=== PATIENT | male | born 1960 | race Caucasian/White ===

== ENCOUNTER 2019-08-14 17:26 | Inpatient (IN) | payer OTHER ==
[2019-08-14] MEDS ORDERED: NS 0.9% 1000 ML** 1,000 ML IV ONE ×3 (17:50→21:08)
[2019-08-14 18:32] LABS: Hematocrit 36 % (42-52); Hemoglobin 12.9 g/dL (14.0-18.0); Mean Corpuscular HGB Conc 36 g/dL (31-36); Mean Corpuscular Hemoglobin 29 pg (27-31); Mean Corpuscular Volume 82 fL (80-94); Red Blood Count 4.42 10^6 /uL (4.18-5.48); Red Cell Distribution Width 13 % (10-15); White Blood Count 5.8 10^3/uL (3.5-10.8)
[2019-08-14 18:33] LABS: ABS Lymphocytes 0.6 10^3/ul (1.0-4.8); ABS Monocytes 0.5 10^3/ul (0-0.8); ABS Neutrophils 4.7 10^3/ul (1.5-7.7); Eosinophil % 0.1 %; Lymphocyte % 10.4 %; Nucleated Red Blood Cells % 0.1
[2019-08-14 18:42] LABS: Activated Partial Thrombo Time 30.3 seconds (26.0-38.0); Fibrinogen 313.8 mg/dL (110.8-404.3); INR 1.49 (0.82-1.09)
--- NOTE | 2019-08-14 18:44 | ED ---
Complex/Multi-Sys Presentation - HPI Summary HPI Summary: Patient is a 59 y/o M presenting to [facility] with complaints of fever, chills, fatigue, body aches, and SOB. He states that Sx have been present for around one week. 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 He notes that he was in [facility] between 06/25/19 and 07/22/19 but denies any onset of Sx during this trip or immediately afterwards. He states that he went to [facility] urgent care and had a temperature of 103.7 F. CXR was done and he states that he was told that he had possible PNA and sepsis. Patient was advised to come to [facility] for further workup. He reports Hx of PNA, HLD, and prostate CA. Patient had his prostate removed a year ago. Hx of HTN and diabetes denied. He notes that he is on Viagra. Home medications and allergies are reviewed. - History Of Current Complaint Chief Complaint: EDShortnessOfBreath Time Seen by Provider: 08/14/19 17:40 Hx Obtained From: Patient Onset/Duration: Lasting Weeks, Still Present Timing: Weeks Location: Pain At: - diffue body aches Associated Signs And Symptoms: Positive: SOB, Fever, Other - positive - fatigue , body aches, chills - Allergies/Home Medications Allergies/Adverse Reactions: Allergies Allergy/AdvReac Type Severity Reaction Status Date / Time No Known Allergies Allergy Verified 08/14/19 17:33 Home Medications: Home Medications Sildenafil Citrate [Viagra] 20 mg PO DAILY 08/14/19 [History Confirmed 08/14/19] Simvastatin 40 mg PO BEDTIME 08/14/19 [History Confirmed 08/14/19] PMH/Surg Hx/FS Hx/Imm Hx Endocrine/Hematology History: Denies: Hx Diabetes Cardiovascular History: Denies: Hx Hypertension History: Denies: Hx Renal Disease - Cancer History Cancer Type, Location and Year: PROSTATE (DIAGNOSED 03/30) - Surgical History Surgery Procedure, Year, and Place: APPENDECTOMY, MENISCUS REPAIR, SKIN CA REMOVED FROM LIP Infectious Disease History: Yes Infectious Disease History: Reports: Traveled Outside the [place] in Last 30 Days - Family History Known Family History: Positive: Hypertension, Diabetes - Social History Alcohol Use: Rare Substance Use Type: Reports: None Smoking Status (MU): Never Smoked Tobacco Review of Systems Positive: Fever, Chills, Fatigue Positive: Shortness Of Breath Positive: Myalgia - diffuse body aches All Other Systems Reviewed And Are Negative: Yes Physical Exam - Summary Physical Exam Summary: VITAL SIGNS: Reviewed. GENERAL: Patient is a well-developed and nourished male who is lying comfortable in the stretcher. Patient is not in any acute respiratory distress. HEAD AND FACE: No signs of trauma. No ecchymosis, hematomas or skull depressions. No sinus tenderness. EYES: PERRLA, EOMI x 2, No injected conjunctiva, no nystagmus. EARS: Hearing grossly intact. Ear canals and tympanic membranes are within normal limits. MOUTH: Oropharynx within normal limits. NECK: Supple, trachea is midline, no adenopathy, no JVD, no carotid bruit, no c- spine tenderness, neck with full ROM. CHEST: Symmetric, no tenderness at palpation. LUNGS: Crackles bilaterally, no wheezing. CVS: Regular rate and rhythm, S1 and S2 present, no murmurs or gallops appreciated. ABDOMEN: Soft, non-tender. No signs of distention. No rebound, no guarding, and no masses palpated. Bowel sounds are normal. EXTREMITIES: FROM in all major joints, no edema, no cyanosis or clubbing. NEURO: Alert and oriented x 3. No acute neurological deficits. Speech is normal and follows commands. SKIN: Dry and warm. Triage Information Reviewed: Yes Vital Signs On Initial Exam: Initial Vitals Temp Pulse Resp BP Pulse Ox 97.0 F 110 18 103/87 94 08/14/19 17:26 08/14/19 17:26 08/14/19 17:26 08/14/19 17:26 08/14/19 17:26 Vital Signs Reviewed: Yes Procedures - Sedation Patient Received Moderate/Deep Sedation with Procedure: No Diagnostics - Vital Signs Vital Signs Temp Pulse Resp BP Pulse Ox 08/14/19 18:20 89 103/62 94 08/14/19 18:00 82 95 08/14/19 17:51 84 94 08/14/19 17:50 79 113/66 93 08/14/19 17:26 97.0 F 110 18 103/87 94 - Laboratory Lab Results: Lab Results 08/14/19 Range/Units 17:54 WBC 5.8 (3.5-10.8) 10^3/uL RBC 4.42 (4.18-5.48) 10^6 /uL Hgb 12.9 L (14.0-18.0) g/dL Hct 36 L (42-52) % MCV 82 (80-94) fL MCH 29 (27-31) pg MCHC 36 (31-36) g/dL RDW 13 (10-15) % Plt Count Pending MPV Pending Neut % (Auto) 79.8 % Lymph % (Auto) 10.4 % [place] % (Auto) 9.0 % Eos % (Auto) 0.1 % Baso % (Auto) 0.7 % Absolute Neuts (auto) 4.7 (1.5-7.7) 10^3/ul Absolute Lymphs (auto) 0.6 L (1.0-4.8) 10^3/ul Absolute Monos (auto) 0.5 (0-0.8) 10^3/ul Absolute Eos (auto) 0.0 (0-0.6) 10^3/ul Absolute Basos (auto) 0.0 (0-0.2) 10^3/ul Absolute Nucleated RBC 0.0 10^3/ul Nucleated RBC % 0.1 Smear Path Review Pending Blood Parasite Screen Pending Result Diagrams: 08/15/19 03:27 08/15/19 03:27 Lab Statement: Any lab studies that have been ordered have been reviewed, and results considered in the medical decision making process. - Radiology CXR Radiology Interpretation Completed By: ED Physician Summary of Radiographic Findings: No acute process, pending official report. - EKG 1822 Cardiac Rate: NL - rate of 87 BPM EKG Rhythm: Sinus Rhythm Summary of EKG Findings: EKG showed NSR with rate of 87 BPM, some ST depression in leads V4, V5, V6. No STEMI. ED physician has reviewed and interpreted this EKG. Complex Multi-Symp Course/Dx Assessment/Plan: Patient is an 82 y/o M presenting to [facility] with complaints of back pain and BLE weakness. Patient had an appointment with his PCP today for his back pain, X-ray was done. Patient claims that he developed BLE weakness earlier today and had difficulty ambulating. However, he notes that he is capable of ambulation overall. Patient was sent to ED for further workup. He reports Hx of arthritis, HTN, CAD, and PNA. Home medications and allergies are reviewed. In the ED course the patient was placed in a monitor car operator, IV access was obtained, IV fluids started. Past medical records reviewed. Blood test w/o a significant abnormality except for hemoglobin 12.9, hematocrit 36, lymphocytes 0.6, sodium 128, potassium 2.9, chloride 96, glucose 150, calcium 8.1, total bili is 1.3, CRP is 108 and total protein is 6. Influenza A and B negative. Blood parasite screen is positive. Since the patient is coming from [facility] likely the patient has contracted malaria. Chest x-ray shows no acute pathology. Patient was given additional liter of normal saline, potassium chlorate, and he was started on Atovaquone. I discuss my physical exam and test results with Dr. Patricia from the hospitalist services and he agrees to admit the patient to his services. The patient is hemodynamically stable alert and oriented x 3. - Diagnoses Provider Diagnoses: Malaria, Hypokalemia, Hyponatremia - Physician Notifications Discussed Care Of Patient With: Bob Patricia Time Discussed With Above Provider: 19:13 Instructed by Provider To: Other - Patient's case was discussed with Dr. Patricia , Dr. Patricia accepts for admission Discharge ED - Sign-Out/Discharge Documenting (check all that apply): Patient Departure - admit - Discharge Plan Condition: Stable Disposition: ADMITTED TO [facility] - Billing Disposition and Condition Condition: STABLE Disposition: Admitted to [facility] - Attestation Statements Document Initiated by Atul: Yes Documenting Scribe: MARGARET NIXON Provider For Whom Atul is Documenting (Include Credential): ALEX ADORNO MD Scribe Attestation: IMARGARET, scribed for ALEX ADORNO MD on 08/15/19 at 0932. Scribe Documentation Reviewed: Yes Provider Attestation: The documentation as recorded by the MARGARET freeman accurately reflects the service I personally performed and the decisions made by me, ALEX ADORNO MD Status of Scribe Document: Viewed
[2019-08-14 18:45] LABS: Albumin 3.3 g/dL (3.2-5.2); Albumin/Globulin Ratio 1.2 (1-3); BUN/Creatinine Ratio 18.7 (8-20); C Reactive Protein 108.38 mg/L (<8.01); Calcium 8.1 mg/dL (8.6-10.3); EGFR Non-African American 106.6 (>60); Globulin 2.7 g/dL (2-4); Potassium 2.9 mmol/L (3.5-5.0); Total Bilirubin 1.3 mg/dL (0.2-1.0)
[2019-08-14] MEDS ORDERED: Potassium Chlor TAB* 20 MEQ TAB.ER PO ONE (18:46)
[2019-08-14 18:48] LABS: Troponin I 0.01 ng/mL (<0.03)
[2019-08-14 18:58] LABS: Mean Platelet Volume 8.8 fL (7.4-10.4); Platelet Count 61 10^3/uL (150-450)
[2019-08-14 19:04] LABS: RBC Parasite Smear Parasites Seen (No Parasite)
[2019-08-14 19:12] LABS: Influenza A Molecular Negative (Negative); Influenza B Molecular Negative (Negative)
[2019-08-14] MEDS ORDERED: Atovaquone* 750 MG/5 ML UDC PO ONE (19:14)
[2019-08-14 19:27] LABS: Urine Appearance Clear; Urine Bilirubin Negative (Negative); Urine Blood Negative (Negative); Urine Color Yellow; Urine Glucose Negative (Negative); Urine Ketones 1+ (Negative); Urine Nitrite Negative (Negative); Urine Protein Negative (Negative); Urine Specific Gravity 1.016 (1.010-1.030); Urine Urobilinogen Negative (Negative)
[2019-08-14 19:34] LABS: Magnesium 1.4 mg/dL (1.9-2.7)
[2019-08-14] MEDS ORDERED: ATOVAQUONE PO ONE (20:00)
[2019-08-14] MEDS ORDERED: PROGUANIL PO ONE (20:00)
[2019-08-14] MEDS ORDERED: Magnesium Sulfate 2 GM IV* 2 GM/50 ML BAG IVPB ONE (21:08)
[2019-08-14] MEDS ORDERED: Ondansetron INJ* 2 MG/ML VIAL IV PRN (21:08)
[2019-08-14] MEDS ORDERED: NS 0.9% 1000 ML** 1,000 ML IV SCH (21:15)
[2019-08-14] MEDS ORDERED: cefTRIAXone(*) 1 GM in NS 0.9% 50 ML* 50 ML IVPB ONE (21:30)
[2019-08-14] MEDS: Acetaminophen TAB* 325 MG PO PRN (21:49)
[2019-08-14] MEDS ORDERED: Azithromycin 500 mg/250 mL NS IVPB ONE (22:00)
[2019-08-14] MEDS: Azithromycin 500 mg/250 ml NS 500 MG/250 ML BAG IVPB SCH (22:03)
[2019-08-14 22:53] LABS: BUN/Creatinine Ratio 23.2 (8-20); Calcium 7.3 mg/dL (8.6-10.3); EGFR Non-African American 117.4 (>60); Magnesium 1.1 mg/dL (1.9-2.7); Potassium 2.9 mmol/L (3.5-5.0)
[2019-08-14 22:55] LABS: Troponin I 0.01 ng/mL (<0.03)
--- NOTE | 2019-08-14 23:10 | HP ---
CC: Dr. Morales; Dr. Silva * HISTORY AND PHYSICAL: DATE OF ADMISSION: 08/14/19 PRIMARY CARE PROVIDER: Dr. Silva. ATTENDING PHYSICIAN WHILE IN THE HOSPITAL: Dr. Patricia * (report dictated by Joe Parks NP). CHIEF COMPLAINT: 1. Rigors. 2. Not feeling well. 3. Myalgias. 4. Fevers. HISTORY OF PRESENT ILLNESS: Mr. 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 He had been taking malaria prophylaxis 2 weeks after returning. He says he was on doxycycline, he finished that, initially was feeling okay; however, last Tuesday, he started feeling lightheaded, dizzy, feeling tired, feeling malaise. He was concerned because he has been working near welding fumes and he thought that perhaps that had made him feel dizzy, lightheaded. He went home, initially felt a little bit better, did okay on , had a decreased appetite, did have some chills, felt okay on Tuesday, was able to go to a farm show with a friend but still feeling a little tired, fatigued, thought maybe was related to the fumes; however, over the weekend, he developed chills, rigors, not able to get warm, having hot and cold, aching all over, feeling nauseated, feeling very tired and fatigued. He actually went to [facility], was found to have an ear infection external, was started on presumably Cipro drops, although he is going to bring in the drops so we can continue. He states that he despite just was not feeling well continued to have decreased appetite and chills. He went to urgent care again today. They were concerned that he may have pneumonia based on chest x-ray and was sent to the hospital. He had a temperature there, which according to them was 103.7. He came to the ER here today, was evaluated. The chest x-ray was concerning for possible pneumonia but it was noted that he had a thrombocytopenia. With the recent travel, a parasite screen was obtained and he does appear to have malaria. Because of these findings and the fact that he was tachycardic, febrile, aching all over, had a low-grade temperature here, we were asked to evaluate for admission. PAST MEDICAL HISTORY: Significant for: 1. Hyperlipidemia. 2. Prostate cancer. 3. Anxiety. PAST SURGICAL HISTORY: 1. He has had an appendectomy. 2. Prostate surgery. HOME MEDICATIONS: Include: 1. Ear drops, he is unsure of the name. His states that she will bring that in so that we can continue. 2. Simvastatin 40 mg daily. 3. Viagra 20 mg p.o. daily. ALLERGIES TO MEDICATIONS: Include no known drug allergies. FAMILY HISTORY: Both his parents had high blood pressure. SOCIAL HISTORY: He does not smoke, does not drink. Surrogate decision maker is his . REVIEW OF SYSTEMS: There is a documented fever. He denied any significant weight change. No double vision, no ear discharge. No rhinorrhea, no sore throat. No thyroid enlargement. Denied any chest pain. There is no orthopnea , no nocturnal dyspnea. He does admit to having some abdominal pain, but no nausea, no vomiting. No dysuria, no frequency. There was no seizure, no loss of consciousness. No pruritus and no skin ulcerations. Review of 14 systems completed, all others were negative. PHYSICAL EXAMINATION GENERAL: At this time, Mr. Dao is a 59-year-old male patient, he is sitting in the ED stretcher. He does not appear to be in any acute distress. He is well nourished, well developed. VITAL SIGNS: Blood pressure 123/69, pulse 102, respirations 18, O2 sat 93%, temperature 100.3. HEENT: Head is atraumatic and normocephalic. Eyes: EOMs are intact. Sclerae are anicteric and not pale. Throat: Oral mucosa appears to be dry. No oropharyngeal erythema. NECK: Supple. LUNGS: He did have some crackles in the right base. He had equal diaphragmatic expansion. HEART: Sounds S1, S2. He is tachycardic. No murmurs, rubs, or gallops. ABDOMEN: Soft, flat, nontender. Bowel sounds were present. EXTREMITIES: Pulses were 2+ throughout. He is moving all 4 extremities with 5/ 5 strength. NEUROLOGICAL: He is awake, he is alert, he is oriented x3. His speech is clear. Tongue midline. No facial drooping was noted. SKIN: Grossly intact. LABORATORY DATA/DIAGNOSTIC STUDIES: Labs today are revealing WBC of 5.8, RBC of 4.42, hemoglobin 12.9, hematocrit of 36, his baseline hemoglobin is 15, platelet count is 61,000, baseline platelets are about 250,000. INR 1.49, PTT of 30.3. Fibrinogen 313. Sodium 128, potassium 2.9, chloride 96, bicarb 25, BUN 14, creatinine 0.75, glucose 150, lactic 1, calcium 8.1, mag 1.4. Total bili 1.3. AST 17, ALT 32, alk phos 46. Troponin 0.01. CRP of 108. Albumin 3.3. Urine showed 1+ ketones. Serology was negative for flu but positive for blood parasites. The patient did have a chest x-ray obtained today as well, which does appear that he has a slight infiltrate in the right base possibly, perhaps in the left upper lobe as well, no pulmonary edema was noted, he had a normal cardiac silhouette. He had an EKG obtained today as well, which shows normal sinus rhythm with a rate of 87. He does have some subtle depression in V4 and V5. No ST elevation was noted. PVCs were noted. Old medical records were reviewed. ASSESSMENT AND PLAN: Mr. Dao is a 59-year-old male patient coming into the emergency department today with complaints of myalgias, fever, chills, not feeling well, on evaluation found to have malaria. He will be admitted under inpatient status for: 1. Sepsis secondary to malaria. Again, he does have sepsis, but I do not see evidence of severe sepsis. I do not see any end-organ dysfunction. I do note that the platelets have fallen but I think that is secondary to the malaria. My plan at this point is he will be getting the 30 cc/kg bolus. His lactic was stable. Fortunately, blood pressure is holding. I am going to put him on Malarone. I have consulted Dr. Morales, he will be evaluating the patient. I do note that he does have some questionable infiltrates in the lungs. I will start him on azithromycin and Rocephin. We will get a legionella antigen and Strep pneumo antigen, blood cultures were sent and we will continue to give him medications for fevers and continue to monitor him. 2. Subtle EKG changes. He is not having any chest pain at this point. He did have some subtle depression in V5 and V4. I am going to go ahead and cycle his troponins and repeat an EKG in the morning. 3. DVT prophylaxis: I am putting him on SCDs. Because of the thrombocytopenia , I am hesitant to use heparin. 4. Hyperlipidemia. I will continue statin therapy. 5. History of prostate cancer. I am holding his Viagra in the setting of acute illness, but he can restart this when able. 6. External otitis media. He does have some redness on exam to his left canal. I will continue his drops. His states that she will be bringing those in and we will restart those appropriately. 7. Fluid, electrolytes, and nutrition: He can have a regular diet. I note his sodium is low, it is probably secondary to dehydration. I am going to repeat his BMP. If it is falling down, I certainly will get a urine osmolality , serum osmolality, TSH, and cortisol level. We will replace the magnesium. I am going to give him 2 g of magnesium, placing him on telemetry because of the electrolyte abnormalities and I am also going to repeat his magnesium and potassium. Potassium was replaced in the emergency room. 8. Code status: Full code. TIME SPENT: Time spent on the admission was 60 minutes, greater than half the time was spent [id number] with the patient obtaining my history of physical; the other half time was spent going over the plan of care with the patient and implementing plan of care. I did discuss the plan of care with my attending, Dr. Patricia; he is in agreement. JOE PARKS NP [id number]/[facility] #: [id number] MONY
[2019-08-15] MEDS ORDERED: Potassium Chlor TAB* 20 MEQ TAB.ER PO ONE ×2 (00:15→07:43)
[2019-08-15] MEDS ORDERED: Ibuprofen TAB* 600 MG PO ONE (00:15)
[2019-08-15] MEDS ORDERED: Magnesium Sulfate 2 GM IV* 2 GM/50 ML BAG IVPB ONE (00:30)
[2019-08-15 03:39] LABS: ABS Lymphocytes 0.2 10^3/ul (1.0-4.8); ABS Monocytes 0.4 10^3/ul (0-0.8); ABS Neutrophils 6.7 10^3/ul (1.5-7.7); Eosinophil % 0.1 %; Hematocrit 34 % (42-52); Hemoglobin 11.8 g/dL (14.0-18.0); Mean Corpuscular HGB Conc 35 g/dL (31-36); Mean Corpuscular Hemoglobin 29 pg (27-31); Mean Corpuscular Volume 84 fL (80-94); Mean Platelet Volume 8.8 fL (7.4-10.4); Platelet Count 46 10^3/uL (150-450); Red Blood Count 4.06 10^6 /uL (4.18-5.48); Red Cell Distribution Width 13 % (10-15); White Blood Count 7.4 10^3/uL (3.5-10.8)
[2019-08-15 03:41] LABS: INR 1.5 (0.82-1.09)
[2019-08-15 03:53] LABS: BUN/Creatinine Ratio 21.1 (8-20); Calcium 7.2 mg/dL (8.6-10.3)
[2019-08-15 03:55] LABS: Troponin I 0.01 ng/mL (<0.03)
[2019-08-15 03:58] LABS: Potassium 2.7 mmol/L (3.5-5.0)
[2019-08-15] MEDS: KCL 10 MEQ/50 ML IVPREMIX* 10 MEQ/50 ML BAG IV SCH ×3 (04:14→14:20)
[2019-08-15] MEDS: NS 0.9% w/ 40 Meq KCL 1000 ML* 1,000 ML IV SCH ×2 (04:14→17:10)
--- NOTE | 2019-08-15 10:10 | PN ---
Subjective Date of Service: 08/15/19 Interval History: Patient was feeling better today, but started to feel fatigue again. Patient complained of mild diarrhea this morning. Objective Active Medications: Acetaminophen (Tylenol Tab*) 650 mg PO Q4H PRN PRN Reason: PAIN - MILD Last Admin: 08/14/19 21:49 Dose: 650 mg Atorvastatin Calcium (Lipitor*) 20 mg PO BEDTIME [facility] Atovaquone/Proguanil (Malarone (Nf)) 4 tab PO BEDTIME [facility]; Protocol Stop: 08/16/19 21:01 Azithromycin (Zithromax 500 Mg/250 Ml) 500 mg in 250 mls @ 250 mls/hr IVPB Q24H [facility] Last Admin: 08/14/19 22:03 Dose: 250 mls/hr Ceftriaxone Sodium 1 gm/ (Sodium Chloride) 50 mls @ 200 mls/hr IVPB Q24H [facility] Potassium Chloride/Sodium Chloride (Ns 0.9% W/ 40 Meq Kcl 1000 Ml*) 1,000 mls @ 125 mls/hr IV PER RATE [facility] Last Admin: 08/15/19 04:14 Dose: 125 mls/hr Magnesium Oxide (Magox 400 Tab*) 400 mg PO DAILY [facility] Stop: 08/18/19 09:59 Ondansetron HCl (Zofran Inj*) 4 mg IV Q6H PRN PRN Reason: NAUSEA Vital Signs - 8 hr 08/15/19 08/15/19 03:33 07:15 Temperature 97.7 F 99.2 F Pulse Rate 101 97 Respiratory 18 18 Rate Blood Pressure 100/51 90/60 (mmHg) O2 Sat by Pulse 97 95 Oximetry Oxygen Devices in Use Now: None Exam: Appearance: sitting up comfortably. Eyes: No Scleral Icterus, PERRLA Ears/Nose/Mouth/Throat: Mucous Membranes Moist Neck: NL Appearance and Movements; NL JVP, Trachea Midline Respiratory: Symmetrical Chest Expansion and Respiratory Effort, mild bibasal creps. Cardiovascular: NL Sounds; No Murmurs; No JVD, no peripheral edema Abdominal: NL Sounds; No Tenderness; No Distention Extremities: no cyanosis, no edema Neurological: Alert and Oriented x 3 Result Diagrams: 08/15/19 03:27 08/15/19 14:45 Additional Lab and Data: Lab Results 08/14/19 Range/Units 17:54 WBC 5.8 (3.5-10.8) 10^3/uL RBC 4.42 (4.18-5.48) 10^6 /uL Hgb 12.9 L (14.0-18.0) g/dL Hct 36 L (42-52) % MCV 82 (80-94) fL MCH 29 (27-31) pg MCHC 36 (31-36) g/dL RDW 13 (10-15) % Plt Count Pending MPV Pending Neut % (Auto) 79.8 % Lymph % (Auto) 10.4 % [place] % (Auto) 9.0 % Eos % (Auto) 0.1 % Baso % (Auto) 0.7 % Absolute Neuts (auto) 4.7 (1.5-7.7) 10^3/ul Absolute Lymphs (auto) 0.6 L (1.0-4.8) 10^3/ul Absolute Monos (auto) 0.5 (0-0.8) 10^3/ul Absolute Eos (auto) 0.0 (0-0.6) 10^3/ul Absolute Basos (auto) 0.0 (0-0.2) 10^3/ul Absolute Nucleated RBC 0.0 10^3/ul Nucleated RBC % 0.1 Smear Path Review Pending Blood Parasite Screen Pending Assess/Plan/Problems-Billing Assessment: Mario Dao is a 59 y/o male with history of hyperlipidemia, presented with fever , chills , fatigue after recent return from [facility] 3 weeks earlier. He was found to have parasite screen positive, which suspicious for malaria. - Patient Problems (1) Malaria Current Visit: Yes Status: Acute Code(s): B54 - UNSPECIFIED MALARIA SNOMED Code(s): 96960667 Comment: - start on Malarone, will monitor liver function - ID consult appreciated - will monitor response to treatment while inpatient. - patient can be followed outpt for malaria (2) Sepsis Current Visit: Yes Status: Acute Comment: - came in with fever, tachycardia , meets SIRS criteria - possible left lung infiltrate - will cover with ceftriaxone and azithromycin (3) Hypokalemia Current Visit: Yes Status: Acute Code(s): E87.6 - HYPOKALEMIA SNOMED Code( s): 01091664 Comment: - will replace with iv and oral tablet (4) Hyperlipidemia Current Visit: Yes Status: Acute Code(s): E78.5 - HYPERLIPIDEMIA, UNSPECIFIED SNOMED Code(s): 11945827 Comment: - continue statin (5) Full code status Current Visit: Yes Status: Acute Code(s): Z78.9 - OTHER SPECIFIED HEALTH STATUS SNOMED Code(s): 585293063 (6) DVT prophylaxis Current Visit: Yes Status: Acute Code(s): Z29.9 - ENCOUNTER FOR PROPHYLACTIC MEASURES, UNSPECIFIED SNOMED Code(s): 056487158 Comment: ambulatory Status and Disposition: Inpatient Medicine. Attestation Documenting Resident: Leyla Rodríguez Supervising Physician: Amrik Chavez Attending/Supervising Physician Comment: Patient admitted w/ malaria, no SEWER REPAIRER involvement, may have infiltrates. Also has hypokalemia, ?due to diarrhea. Repleting Mg and KCl. Attestation: This service has been performed in part by a resident under the direction of a teaching physician.I, Amrik Chavez, performed the service, or was physically present during the critical, or loving portions of the service, furnished by the resident. I participated in the management of the patient.
[2019-08-15] MEDS: Magnesium Oxide TAB* 400 MG PO SCH (11:14)
[2019-08-15] MEDS: KCL premix 10MEQ/50 ML x 2 BAGS IV SCH ×2 (14:08→14:20)
[2019-08-15] MEDS: Acetaminophen TAB* 325 MG PO PRN ×2 (14:24→23:32)
--- NOTE | 2019-08-15 14:27 | CONS ---
CONSULTATION REPORT: DATE OF CONSULT: 08/15/19 REQUESTING PROVIDER: Riccardo Parks NP CONSULTING SERVICE: Infectious Disease. REASON FOR CONSULT: Malaria. IMPRESSION: 1. 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 He is stable. His tachycardia is improving and his oral intake is increasing. His rigors and sweats are a little better. We discussed that he can expect those sy mptoms to persist for a few days. The percent parasitemia is pending. 2. Hypokalemia. 3. Thrombocytopenia and anemia due to malaria. RECOMMENDATIONS: Continue potassium replacement, fluids as needed, Malarone day 2 of 4. We will rep eat a smear eventually. He did have a tiny infiltrate on his x- ray, which I think is related to sys temic infection and does not represent pneumonia. We will stop his ceftriaxone and azithromycin. HISTORY OF PRESENT ILLNESS: This is a 59-year-old man with travel to [facility]. He took doxycycline wh ile there. He was in the country [place] 6 [place] 8 weeks. He took it for 2 weeks after he returned. Ten d ays after finishing doxycycline, he developed fevers, chills, and sweats with malaise, decreased ener gy. Symptoms persisted. Seen in the urgent care, diagnosed with otitis externa. He was still feelin g worse, so he came to the hospital yesterday. Influenza PCR was negative. His blood parasite scree n was positive. His hemoglobin was 12.9, platelets 61, bilirubin 1.3, CRP 108. No bilirubin in the urine. Today, his hemoglobin is 11.8, platelets 46. He was febrile off and on overnight. No fevers this morning. He has been normotensive. He had some tachycardia yesterday, which is starting to im prove. PAST MEDICAL HISTORY: 1. Hyperlipidemia. 2. Prostate cancer, status post prostatectomy. 3. Anxiety. PAST SURGICAL HISTORY: Status post appendectomy. ALLERGIES: No known drug allergies. MEDICATIONS: 1. Tylenol. 2. Lipitor. 3. Malarone. 4. Ceftriaxone 1 g a day. 5. Azithromycin 500 mg daily. 6. Potassium. SOCIAL HISTORY: He lives in [place]. He works on a farm. Had been in [facility] for a few weeks do [employer] work. Lives with his . FAMILY HISTORY: Parents with hypertension. REVIEW OF SYSTEMS: All negative except as noted above to a 12-point review of systems. PHYSICAL EXAM: Vital Signs: Temperature 37.3, heart rate 90, respiratory rate 18, blood pressure 90 /60 at 7:15, oxygen saturation 95% on room air. In general, he is awake, not in distress, conversant . HEENT: There is no conjunctival hemorrhage. There is slight scleral icterus . Oropharynx w ithout lesions. Neck is supple without mass. Lymph Nodes: There is no cervical, supraclavicular, i nguinal, axillary, or epitrochlear lymphadenopathy. Heart is regular rate and rhythm without murmurs , rubs, or gallops. Lungs are clear to auscultation bilaterally. Abdomen: Soft, nontender, nondist ended. There are bowel sounds present. Skin: There is no rash or splinter hemorrhage. Musculoskel etal: There is no spine tenderness to palpation or joint synovitis. LABORATORY DATA: Potassium 2.7, creatinine 0.7. White blood cell count 7, hemoglobin 11.8, platelet s 46. Please see impression and recommendations outlined above. Thanks for asking me to see Mr. Dao in consultation. [id number]/[facility] #: [id number]
[2019-08-15 15:12] LABS: BUN/Creatinine Ratio 20.3 (8-20); Calcium 7.6 mg/dL (8.6-10.3); EGFR African American 170.1 (>60); EGFR Non-African American 140.6 (>60); Potassium 3.9 mmol/L (3.5-5.0)
[2019-08-15] MEDS: Azithromycin 500 mg/250 ml NS 500 MG/250 ML BAG IVPB SCH (20:42)
[2019-08-15] MEDS ORDERED: ATOVAQUONE PO SCH (21:00)
[2019-08-15] MEDS ORDERED: PROGUANIL PO SCH (21:00)
[2019-08-15] MEDS ORDERED: Atorvastatin* 20 MG TAB PO SCH (21:00)
[2019-08-15] MEDS ORDERED: cefTRIAXone(*) 1 GM in NS 0.9% 50 ML* 50 ML IVPB SCH (21:30)
[2019-08-16] MEDS: NS 0.9% w/ 40 Meq KCL 1000 ML* 1,000 ML IV SCH ×2 (01:15→11:06)
[2019-08-16 06:31] LABS: Albumin 2.3 g/dL (3.2-5.2); CO2 Carbon Dioxide 15 mmol/L (22-32); Calcium 7.1 mg/dL (8.6-10.3); Chloride 109 mmol/L (101-111); Sodium 132 mmol/L (135-145)
[2019-08-16 06:37] LABS: ALT 21 U/L (7-52); Albumin/Globulin Ratio 0.8 (1-3); Alkaline Phosphatase 41 U/L (34-104); BUN/Creatinine Ratio 16.1 (8-20); Blood Urea Nitrogen 9 mg/dL (6-24); EGFR African American 180.7 (>60); EGFR Non-African American 149.3 (>60); Glucose 99 mg/dL (70-100); Total Protein 5.3 g/dL (6.4-8.9)
[2019-08-16 06:49] LABS: ABS Eosinophils 0.1 10^3/ul (0-0.6); ABS Lymphocytes 1.1 10^3/ul (1.0-4.8); ABS Monocytes 0.5 10^3/ul (0-0.8); ABS Neutrophils 4.1 10^3/ul (1.5-7.7); Eosinophil % 1.7 %; Hematocrit 35 % (42-52); Lymphocyte % 17.9 %; Mean Corpuscular HGB Conc 35 g/dL (31-36); Mean Corpuscular Hemoglobin 29 pg (27-31); Mean Corpuscular Volume 84 fL (80-94); Mean Platelet Volume 8.9 fL (7.4-10.4); Nucleated Red Blood Cells % 0.1; Platelet Count 88 10^3/uL (150-450); Red Blood Count 4.11 10^6 /uL (4.18-5.48); Red Cell Distribution Width 14 % (10-15); White Blood Count 5.9 10^3/uL (3.5-10.8)
[2019-08-16 07:04] LABS: Anion Gap 8 mmol/L (2-11)
[2019-08-16] MEDS: Magnesium Oxide TAB* 400 MG PO SCH (07:40)
[2019-08-16] MEDS ORDERED: Polyethylene Glycol 3350* 17 GM PACKET PO PRN (09:15)
--- NOTE | 2019-08-16 09:33 | PN ---
Progress Note - Progress Note Date of Service: 08/16/19 SOAP: Subjective: CC: malaria HPI: 59 [facility] travel [facility], took doxy 2 weeks after trip. Later developed fever and rigors. No rigors last night, had a low grade fever. Appetite improved. No cough or shortness of breath. Objective: Vital Signs Temp 37.4 C 08/16/19 03:36 Pulse 102 08/16/19 03:36 Resp 17 08/16/19 03:36 BP 101/49 08/16/19 03:36 Pulse Ox 96 08/16/19 03:36 Intake & Output 08/15/19 08/16/19 08/16/19 18:59 06:59 18:59 Intake Total 5697 2531 Output Total 1100 1260 Balance 4597 1271 Intake: IV Fluids 1601 NS with 40K 1601 IVPB 1200 NS with 40K 1000 Potassium 200 Oral 4497 930 Output: Urine 1100 1260 Other: # Bowel Movements 0 # Voids 0 PE: appears comfortable, no scleral icterus Lungs:CTA Laboratory Results - last 24 hr 08/14/19 08/15/19 08/16/19 17:54 14:45 05:41 WBC RBC Hgb Hct MCV MCH MCHC RDW Plt Count MPV Neut % (Auto) Lymph % (Auto) Will % (Auto) Eos % (Auto) Baso % (Auto) Absolute Neuts (auto) Absolute Lymphs (auto) Absolute Monos (auto) Absolute Eos (auto) Absolute Basos (auto) Absolute Nucleated RBC Nucleated RBC % Smear Path Review Hem Pathologist Commnt Sodium 135 132 L Potassium 3.9 TNP Chloride 107 109 Carbon Dioxide 22 15 L Anion Gap 6 8 BUN 12 9 Creatinine 0.59 L 0.56 L Est GFR ( Amer) 170.1 180.7 Est GFR (Non-Af Amer) 140.6 149.3 BUN/Creatinine Ratio 20.3 H 16.1 Glucose 154 H 99 Calcium 7.6 L 7.1 L Total Bilirubin 0.70 AST TNP ALT 21 Alkaline Phosphatase 41 Total Protein 5.3 L Albumin 2.3 L Globulin 3.0 Albumin/Globulin Ratio 0.8 L 08/16/19 08/16/19 06:34 06:37 WBC 5.9 RBC 4.11 L Hgb 12.0 L Hct 35 L MCV 84 MCH 29 MCHC 35 RDW 14 Plt Count 88 L D MPV 8.9 Neut % (Auto) 70.3 Lymph % (Auto) 17.9 Will % (Auto) 9.3 Eos % (Auto) 1.7 Baso % (Auto) 0.8 Absolute Neuts (auto) 4.1 Absolute Lymphs (auto) 1.1 Absolute Monos (auto) 0.5 Absolute Eos (auto) 0.1 Absolute Basos (auto) 0.0 Absolute Nucleated RBC 0.0 Nucleated RBC % 0.1 Smear Path Review Hem Pathologist Commnt Sodium Potassium 4.0 Chloride Carbon Dioxide Anion Gap BUN Creatinine Est GFR ( Amer) Est GFR (Non-Af Amer) BUN/Creatinine Ratio Glucose Calcium Total Bilirubin AST 17 ALT Alkaline Phosphatase Total Protein Albumin Globulin Albumin/Globulin Ratio Assessment: 1. malaria, P. falciparum 2. pulmonary infiltrate, slight and without respiratory symptoms, I don't think he has pneumonia. Plan: 1. recheck cxr 1 month 2. add % parasitemia and pcr, continue malarone day 3 of 4
[2019-08-16] MEDS: Acetaminophen TAB* 325 MG PO PRN (11:07)
[2019-08-16 11:48] VITALS: BP 113/63
--- NOTE | 2019-08-16 17:08 | DS ---
Resident Discharge Summary Discharge Summary: Date of Admission: 08/14/19 Date of Discharge: 08/16/19 Admitting MD: Bob Patricia DO Attending MD: Amrik Chavez MD Primary Care Physician: Nikita Silva MD Home Medications Medication Instructions Recorded Confirmed Type Sildenafil Citrate [Viagra] 20 mg PO DAILY 08/14/19 08/14/19 History Simvastatin 40 mg PO BEDTIME 08/14/19 08/14/19 History Acetaminophen TAB* [Tylenol TAB*] 650 mg PO Q4H PRN tab 08/16/19 Rx Atovaquone/Proguanil (NF) 4 tab PO BEDTIME #8 tab 08/16/19 Rx [Malarone (NF)] Disposition: Home Condition: Improved Primary Diagnosis: 1. Malaria 2. Pulmonary infiltrate likely due to malaria Secondary Diagnosis: 1. Hyperlipidemia Diagnostic Imaging: CXR 08/13: left basilar infiltrate, faint Pertinent Laboratory Results: CBC 08/16/2019: wbc 5.9, hB 12.0, Plt 88 BMP: Na 132, K 4.0, bicarb 15, creatinine 0.56 AST 17 ALT 21 blood smear: intracellular parasitic organisms present , consistent with plasmodium sp. 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 Please refer to H&P dated 08/14/2019 for more information. He met SIRS criteria with fever, tachycardia on admission, found to have normal white blood cells, thrombocytopenia, electrolytes disturbances including hyponatremia, hypokalemia , hypochloremia. He had influenza test which is negative, parasite screening showing intracellular parasite. Infectious disease was consulted, and Malarone tablets were started. His symptoms improved with less rigors and lower fever, his platelets also improved on day 2. His electrolytes were replaced. 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 He completed 2 doses of maralone inpatient and would complete with 4 doses in total. There was a concern of coexisting lung infection in view of left basal infiltrate seen in CXR. He was covered with broad antibiotics during his inpatient stay but no other infective sx other than fever or chills. It was thought this infiltrate is also malaria related. An CXR in 1 month will be recommended to follow up. On the day of discharge, patient felt better, vitals stable. 12-point physical examination all normal. He will be following up with his primary care for CXR in 1 month, and also follow up with ID for Malarone treatment. Follow Up Instructions: 1. Follow up with primary care within 1 week 2. Follow up with Infectious Disease Dr. Morales. In case of an emergency or after clinic hours, please go to your nearest Emergency Department. You may also call the [facility] plate shear operator at .
== END 2019-08-16 14:30 | disposition home or self-care (01) | DRG 871 ==
LOC: ED 17:26 → MED 20:56
PROVIDERS: ADMIT Family Medicine; ATTEND Internal Medicine
DX: A41.9 Sepsis, unspecified organism (principal); B50.9 Plasmodium falciparum malaria, unspecified; E87.1 Hypo-osmolality and hyponatremia; E78.5 Hyperlipidemia, unspecified; E87.6 Hypokalemia; F41.9 Anxiety disorder, unspecified; H66.92 Otitis media, unspecified, left ear; D69.6 Thrombocytopenia, unspecified; D64.9 Anemia, unspecified; H60.92 Unspecified otitis externa, left ear; E87.8 Other disorders of electrolyte and fluid balance, not elsewhere classified; Z85.46 Personal history of malignant neoplasm of prostate; Z85.828 Personal history of other malignant neoplasm of skin; Z79.899 Other long term (current) drug therapy
CPT/HCPCS: 36415; 71046; 80048; 80053; 81003; 83605; 83735; 83880; 84484; 85025; 85060; 85384; 85610; 85652; 85730; 86140; 87015; 87040; 87207; 93005; 99284; A9270-GY; J0456; J0696; J3475; J3480

== ENCOUNTER 2022-07-20 05:32 | Observation (INO) ==
[2022-07-20] MEDS ORDERED: Buffered Lidocaine 1% SYRIN 1 ml INTRADERM ONE (06:00)
[2022-07-20] MEDS ORDERED: Lactated Ringers 1000 ml BAG 1,000 ML IV SCH (06:00)
[2022-07-20] MEDS ORDERED: ceFAZolin 2 GM in NS PREMIX 2 GM/100 ML BAG IVPB ONE (06:00)
[2022-07-20] MEDS ORDERED: Dexamethasone IV 4 MG/ML VIAL 1 ml VIAL ONE (06:37)
[2022-07-20] MEDS ORDERED: Midazolam 2 mg/2 ml VIAL 1 mg/ml 2 ml VIAL (2 mg) ONE (06:37)
[2022-07-20] MEDS ORDERED: Ondansetron 4 mg VIAL 2 MG/ML 2 ml VIAL ONE (06:37)
[2022-07-20] MEDS ORDERED: Lidocaine 2% PF 5 ML VIAL ONE (06:37)
[2022-07-20] MEDS ORDERED: fentaNYL 100 mcg/2 ml 50 MCG/ML VIAL ONE (06:43)
[2022-07-20] MEDS ORDERED: ROPIVACAINE 5 MG/ML 30 ML BTL (0.5%) ONE ×2 (07:15→07:22)
[2022-07-20] MEDS ORDERED: Propofol 10 MG/ML 20 ML BTL ONE ×4 (08:38→09:55)
[2022-07-20] MEDS ORDERED: HYDROmorphone 1 MG/1 ML SYRINGE IV PRN (08:54)
[2022-07-20] MEDS ORDERED: fentaNYL 100 mcg/2 ml 50 MCG/ML VIAL IV PRN (08:54)
[2022-07-20] MEDS ORDERED: Naloxone 0.4 mg VIAL 0.4 mg/ml 1 ml VIAL IV PRN (08:54)
[2022-07-20] MEDS ORDERED: Acetaminophen IV 1 GM/100ML 1,000 MG/100 ML BAG IV PRN (08:54)
[2022-07-20] MEDS ORDERED: Ondansetron 4 mg VIAL 2 MG/ML 2 ml VIAL IV PRN ×2 (08:54→10:54)
[2022-07-20] MEDS ORDERED: Morphine 2 MG/ML SYRINGE IV PRN (10:54)
[2022-07-20] MEDS ORDERED: Magnesium Hydroxide LIQ 30 ML UDC PO PRN (10:54)
[2022-07-20] MEDS ORDERED: Lactulose 30 ml UDC PO PRN (10:54)
[2022-07-20] MEDS ORDERED: Ondansetron ODT 4 mg TAB 4 MG TAB PO PRN (10:54)
[2022-07-20] MEDS ORDERED: Acetaminophen IV 1 GM/100ML 1,000 MG/100 ML BAG IV ONE (11:22)
[2022-07-20] MEDS: Lactated Ringers 1000 ml BAG 1,000 ML IV SCH ×2 (13:05→23:24)
[2022-07-20] MEDS: ceFAZolin 1 GM ADVAN 1 GM in NS 0.9% 50 ML 50 ML IVPB SCH ×2 (15:55→23:24)
[2022-07-20] MEDS: Magnesium Hydroxide LIQ 30 ML UDC PO SCH (20:01)
[2022-07-21 06:46] LABS: Hematocrit 36 % (42-52); Hemoglobin 12.2 g/dL (14.0-18.0); Mean Platelet Volume 7.4 fL (7.4-10.4); Platelet Count 219 10^3/uL (150-450)
[2022-07-21 07:07] LABS: Calcium 8.3 mg/dL (8.6-10.3); Creatinine, Serum 0.62 mg/dL (0.67-1.17); Potassium 4.1 mmol/L (3.5-5.0); eGFR CKD-EPI 108.1 (>60)
[2022-07-21] MEDS: ceFAZolin 1 GM ADVAN 1 GM in NS 0.9% 50 ML 50 ML IVPB SCH (07:36)
[2022-07-21] MEDS: Magnesium Hydroxide LIQ 30 ML UDC PO SCH (08:50)
[2022-07-21] MEDS ORDERED: Vitamin THERAPEUTIC TAB PO SCH (09:00)
[2022-07-21 12:12] VITALS: BP 119/62
== END 2022-07-21 12:40 | disposition home or self-care (01) ==
LOC: AA 05:32 → INTOOBSV 05:32 → SSU 12:28
PROVIDERS: ADMIT Orthopaedic Surgery Adult Reconstructive Orthopaedic Surgery; ATTEND Orthopaedic Surgery Adult Reconstructive Orthopaedic Surgery